=== PATIENT | male | born 1995 | race Caucasian/White ===

== ENCOUNTER 2021-02-22 23:31 | Emergency (ER) | payer SELFPAY ==
[2021-02-22 23:45] VITALS: BP 150/96; PULSE 117; RESP 16; TEMP 37.6; O2SAT 96; BMI 37.7
[2021-02-23 00:38] LABS: Add Urine Microscopic? YES; Bacteria Urine TRACE /hpf; Bilirubin Urine Neg (Negative); Blood Urine Neg (Negative); Glucose Urine UA Norm (Normal); Ketones Urine Negative (Negative); Leukocyte Esterase Urine 1+ (Negative); Nitrate Urine Negative (Negative); Protein Urine Neg (Negative); RBC Urine 0-4 /hpf (0-2); Squamous Epithelial Cell Urine 0-4 /hpf (0-5); Urine Appearance Clear (CLEAR); Urine Color Yellow (Yellow); Urobilinogen Urine 4 mg/dL (Negative); WBC Urine 0-4 /hpf (0-5); pH Urine 6.5 (5-7)
--- NOTE | 2021-02-23 00:48 | W.ED.MALEGU ---
HPI - Male Genitourinary General: Chief complaint: Urogenital-Male Stated complaint: genital bleeding Time Seen by Provider: 02/22/21 23:39 Source: patient Mode of arrival: ambulatory Limitations: no limitations History of Present Illness: HPI Narrative: 25-year-old male states he has had some pain at the tip of his penis over the last 2 to 3 days along with irritation and some bleeding at times. He denies any dysuria or discharge. He denies any worsening or improving factors. Denies any lesions. Associated symptoms: Deny dysuria, nausea or vomiting Review of Systems Const: Denies: fever(s), chills, body aches or change in appetite Eyes: Denies: blurry vision or eye discomfort ENMT: Denies: throat pain or dental pain Card: Denies: chest pain Resp: Denies: dyspnea GI: Denies: abdominal pain, nausea, vomiting or diarrhea : Reports: genital pain; Denies: dysuria Musc: Denies: neck pain or back pain Skin/Breast: Denies: rash Neuro: Denies: headache(s) Psych: Denies: depression Damián/Lymph: Denies: easy bruising All/Imm: Denies: urticaria Physical Exam Const: COMMON NORMALS: no acute distress, patient oriented x3 and healthy appearing HENMT: COMMON NORMALS: normocephalic and atraumatic HEAD & SCALP: normocephalic and atraumatic Eye: COMMON NORMALS: Equal, round and reactive pupils present and EOMs intact bilaterally PUPIL: Yes Equal, round and reactive pupils present Neck/C-Spine: COMMON NORMALS: full ROM and supple Chest: COMMONS NORMALS: normal inspection of the chest and normal palpation of entire chest wall Resp: COMMON NORMALS: normal respiratory effort, No retractions, No use of accessory muscles and clear to auscultation bilaterally AUSCULTATION: clear to auscultation bilaterally Cardio: COMMON NORMALS: regular rate, regular rhythm and No murmurs present (Cardio) RATE: regular rate RHYTHM: regular rhythm GI: COMMON NORMALS: Normal to inspection, nondistended, normoactive bowel sounds present, Soft to palpation, non-tender and no masses PALPATION: Yes Soft to palpation : OTHER: Erythema noted to the glans consistent with a balanitis Extremity: COMMON NORMALS: normal to inspection and full ROM Neuro: COMMON NORMALS: patient oriented x3, moves all extremities and no focal motor deficits Psych: COMMON NORMALS: mental status grossly normal, Normal thought process present and cooperative THOUGHT PROCESS: Normal thought process present Skin: COMMON NORMALS: no rashes or lesions noted and no wounds GENERAL SKIN EXAM: no rashes or lesions noted Course Vital Signs: Vital signs: Vital Signs Temperature 99.6 F 02/22/21 23:45 Pulse Rate 117 H 02/22/21 23:45 Respiratory Rate 16 02/22/21 23:45 Blood Pressure 150/96 02/22/21 23:45 Pulse Oximetry 96 02/22/21 23:45 MDM - Male MDM Narrative: Medical decision making narrative: Patient presents here with a balanitis. Will prescribe him clotrimazole. He is stable for discharge is to follow-up PCP and return if worsening. Lab Data: Labs: Lab Results 02/23/21 Range/Units 00:22 Urine Color Yellow (Yellow) Urine Appearance Clear (CLEAR) Urine pH 6.5 (5-7) Ur Specific Gravit y 1.020 (1.005-1.030) Urine Protein Neg (Negative) Urine Glucose (UA) Norm (Normal) Urine Ketones Negative (Negative) Urine Blood Neg (Negative) Urine Nitrate Negative (Negative) Urine Bilirubin Neg (Negative) Urine Urobilinogen 4 H (Negative) mg/dL Ur Leukocyte Greer ase 1+ H (Negative) Urine RBC 0-4 H (0-2) /hpf Urine WBC 0-4 H (0-5) /hpf Ur Squamous Epith Cells 0-4 H (0-5) /hpf Amorphous Sediment Not Reportable Urine Bacteria Trace (NONE) /hpf Discharge Plan Discharge Patient Disposition: Home Clinical Impression: Balanitis Condition: Stable Prescriptions: New clotrimazole 1 % cream 1 applic topical BID 14 Days RF: 0 Discharge Orders: Discharge ED (Routine); Ordered 02/23/21 Ordered By: Tarah Crowell Discharge Diet: Advance as tolerated Discharge Activity: Resume usual activity Patient Instructions: Tomasa (ED) Coding Level 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
== END 2021-02-23 01:01 | disposition home or self-care (01) ==
PROVIDERS: Emergency Provider Emergency Medicine
DX: N48.1 Balanitis (principal)
CPT/HCPCS: 81001; 99281

== ENCOUNTER 2021-03-03 16:07 | Emergency (ER) | payer SELFPAY ==
[2021-03-03 16:41] VITALS: BP 125/80; PULSE 121; RESP 16; TEMP 37; O2SAT 97; BMI 37.7
--- NOTE | 2021-03-03 16:54 | ED_ITS ---
HPI - Skin/Abscess/Foreign Bdy General: Chief complaint: Skin/Abscess/Foreign Body Stated complaint: infection in private area Time Seen by Provider: 03/03/21 16:49 History of Present Illness: HPI narrative: Patient is [place] is a cleared up on had the penis but now he has a couple sores underneath the head of the penis on the underside. Denies much pain does not have any discharge last sexual contact was greater than 2 months ago. And he said person he had sex with a just recently been tested and was clear of all problems MD complaint: rash and lesion Onset (ago): day(s) Associated symptoms: Deny chills, fever(s), nausea or vomiting Review of Systems Const: Denies: fever(s), chills or body aches Eyes: Denies: change in vision or blurry vision ENMT: Denies: throat pain or nasal congestion Card: Denies: chest pain or dyspnea on exertion Resp: Denies: dyspnea, productive cough or non-productive cough GI: Denies: abdominal pain, nausea or vomiting : Denies: difficulty urinating Musc: Denies: extremity pain Skin/Breast: Denies: rash Neuro: Denies: headache(s) Psych: Denies: anxiety or depression Damián/Lymph: Denies: easy bruising Physical Exam Const: COMMON NORMALS: no acute distress, average body habitus and patient oriented x3 HENMT: COMMON NORMALS: normocephalic HEAD & SCALP: normal to inspection and normocephalic FACE & SINUS: normal facial exam Eye: COMMON NORMALS: conjunctivae normal GENERAL EYE: appearance normal, both eyes and all related structures CONJUNCTIVA: Yes conjunctivae normal Neck/C-Spine: COMMON NORMALS: no JVD Chest: COMMONS NORMALS: normal inspection of the chest Resp: COMMON NORMALS: normal respiratory effort and clear to auscultation bilaterally AUSCULTATION: clear to auscultation bilaterally Cardio: COMMON NORMALS: no JVD and regular rhythm RATE: tachycardic RHY THM: regular rhythm GI: COMMON NORMALS: Normal to inspection, nondistended, normoactive bowel sounds present : OTHER: Had the penis has some whitish discoloration to it but at the base of the head of the penis on the underside has a couple red sores with slight inflammation no drainage no evidence of chancres on the shaft no other areas noted that. Normal. Extremity: COMMON NORMALS: normal to inspection and full ROM Neuro: COMMON NORMALS: patient oriented x3 Course Vital Signs: Vital signs: Vital Signs Temperature 98.6 F 03/03/21 16:41 Pulse Rate 121 H 03/03/21 16:41 Respiratory Rate 16 03/03/21 16:41 Blood Pressure 125/80 03/03/21 16:41 Pulse Oximetry 97 03/03/21 16:41 Discharge Plan Discharge Patient Disposition: Home Clinical Impression: Open wound of penis Qualifiers: Encounter type: initial encounter Qualified Code(s): S31.20XA - Unspecified open wound of penis, initial encounter Condition: Stable Prescriptions: New mupirocin 2 % ointment 1 applic topical TID Qty: 22 RF: 0 Zithromax Z-Gianni 250 mg tablet See Rx Instructions .ROUTE .COMPLEX Qty: 6 RF: 0 No Action clotrimazole 1 % cream 1 applic topical BID 14 Days RF: 0 Discharge Orders: Discharge ED (Routine); Ordered 03/03/21 Ordered By: Shilo Nair Discharge Diet: Usual diet Discharge Activity: Resume usual activity Activity Restrictions/Additional Instructions: If not better in 5 to 7 days follow-up your primary care provider yet reevaluated. Use medication as directed. 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
[2021-03-04 08:54] LABS: Glucose Point of Care 96 mg/dL (70-110)
== END 2021-03-03 17:39 | disposition home or self-care (01) ==
PROVIDERS: Emergency Provider Nurse Practitioner Family
DX: S31.20XA Unspecified open wound of penis, initial encounter (principal); X58.XXXA Exposure to other specified factors, initial encounter
CPT/HCPCS: 36416; 82962; 99282

== ENCOUNTER 2022-01-16 17:07 | Emergency (ER) | payer OTHER, SELFPAY ==
[2022-01-16 17:10] VITALS: BP 151/85; PULSE 110; RESP 16; TEMP 36.6; O2SAT 97
--- NOTE | 2022-01-16 17:17 | ED_ITS ---
HPI - Ear Problem General: Chief complaint: Ear Stated complaint: right ear pain Time Seen by Provider: 01/16/22 17:16 History of Present Illness: Patient is a 26-year-old male who comes to the ED with right ear complaint. Patient reports right ear pain that started last night. He also reports feeling like his ear feels clogged and is having trouble hearing out of it. He had cold symptoms with nasal congestion drainage and cough for the past week and his cold symptoms have just about resolved. Denies any fevers within the last 48 hours. Denies any nausea vomiting bladder or bowel symptoms. Associated symptoms: Reports ear or mastoid pain (right ear); Denies fever(s), headache(s) or neck pain Review of Systems Const: Denies: fever(s), chills or fatigue Eyes: Denies: change in vision or eye discomfort ENMT: Reports: ear or mastoid pain (right ear) and change in hearing (right ear); Denies: throat pain, odynophagia, nasal discharge or nasal congestion Card: Denies: chest pain, palpitations, edema, swelling of feet/ankles, dyspnea on exertion or orthopnea Resp: Denies: dyspnea, productive cough or non-productive cough GI: Denies: abdominal pain, nausea, vomiting, diarrhea, constipation or hematochezia : Denies: flank pain, difficulty urinating, dysuria or hematuria Musc: Denies: neck pain, back pain or extremity swelling Skin/Breast: Denies: rash or new lesions Neuro: Denies: headache(s), numbness in extremities or weakness in extremities PFS ED PFSH: Medical History No pertinent family history Surgical History No pertinent past surgical history Physical Exam Const: COMMON NORMALS: patient oriented x3 and alert GENERAL APPEARANCE: cooperative HENMT: COMMON NORMALS: normocephalic HEAD & SCALP: normocephalic EXTERNAL AUDITORY CANAL: Abnormal EAC present EAC laterality: right Details: erythema, edema and EAC tenderness TYMPANIC MEMBRANE: TM abnormal TM laterality: right Details: bulging, erythematous and fluid behind TM MOUTH: Normal oral and palatal mucosa present THROAT: posterior oropharynx normal and uvula midline Neck/C-Spine: COMMON NORMALS: supple GENERAL: Yes normal visual inspection Resp: COMMON NORMALS: normal respiratory effort, No retractions, No use of accessory muscles and clear to auscultation bilaterally AUSCULTATION: clear to auscultation bilaterally Cardio: COMMON NORMALS: regular rate, regular rhythm, S1 normal heart sound present, S2 normal heart sound present, No gallops present (Cardio), No clicks present (Cardio), No murmurs present (Cardio) and Peripheral pulses 2+ throughout RATE: regular rate RHYTHM: regular rhythm HEART SOUNDS: S1 normal heart sound present and S2 normal heart sound present PERIPHERAL PULSES: Peripheral pulses 2+ throughout GI: COMMON NORMALS: Normal to inspection, nondistended, normoactive bowel sounds present, Soft to palpation, non-tender and no masses PALPATION: Yes Soft to palpation : COMMON NORMALS: Yes no CVA tenderness BLADDER/KIDNEY EXAM: Yes no CVA tenderness Back/Pelvis: COMMON NORMALS: no CVA tenderness Extremity: COMMON NORMALS: normal to inspection Neuro: COMMON NORMALS: patient oriented x3 and moves all extremities SENSORIUM/ORIENTATION: Yes alert Skin: GENERAL SKIN EXAM: dry skin Course Vital Signs: Vital signs: Vital Signs Temperature 97.8 F 01/16/22 17:10 Pulse Rate 110 H 01/16/22 17:10 Respiratory Rate 16 01/16/22 17:10 Blood Pressure 151/85 01/16/22 17:10 Pulse Oximetry 97 01/16/22 17:10 MDM - Ear Medical Decision Making Patient is a 26-year-old male comes to the ED with right ear pain. Vitals are stable. Patient appears nontoxic and in no acute distress. Exam of patient shows otitis media and otitis externa of right ear. He was discharged home with a prescription for Ciprodex eardrops and amoxicillin. He was told to follow-up with his PCP in the next week for reevaluation. Return to ED precautions given. Patient understood and agreed with plan. Discharge Plan Discharge Patient Disposition: Home Clinical Impression: Otitis externa Qualifiers: Otitis externa type: unspecified type Chronicity: acute Laterality: right Qualified Code(s): H60.501 - Unspecified acute noninfective otitis externa, right ear Otitis media Qualifiers: Otitis media type: serous Chronicity: acute Laterality: right Recurrence: non-recurrent Qualified Code(s): H65.01 - Acute serous otitis media, right ear Condition: Stable Prescriptions: New Ciprodex 0.3-0.1 % drops,suspension 4 drp otic (ear) BID 7 Days Qty: 7.5 0RF amoxicillin 500 mg tablet 500 mg PO BID 10 Days Qty: 20 0RF No Action mupirocin 2 % ointment 1 applic topical TID Qty: 22 0RF Zithromax Z-Gianni 250 mg tablet See Rx Instructions .ROUTE .COMPLEX Qty: 6 0RF Rx Instructions: take 500 mg today (day 1), then 250 mg for 4 days (days 2-5) Discharge Orders: Discharge ED (Routine); Ordered 01/16/22 Ordered By: Oscar Carpenter Discharge Diet: Regular Discharge Activity: Resume usual activity Activity Restrictions/Additional Instructions: Follow-up with medical provider as directed within the next 5 to 7 days reevaluation. Take medications as prescribed. Return to the ER or your medical provider if condition worsens. Please read and understand discharge instructions. Thank you for choosing [facility] for your healthcare needs today. Please realize this is an emergency room and that we are providing you with a medical screening exam and this may not be complete and all inclusive of all the testing and or work up that you may need to determine your ailment or severity of your illness. It is very important that you follow up as instructed or that you return to the Emergency Department should you have concerns or if your condition changes or worsens in any way. 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
== END 2022-01-16 17:36 | disposition home or self-care (01) ==
PROVIDERS: Emergency Provider Physician Assistant
DX: H60.501 Unspecified acute noninfective otitis externa, right ear (principal)
CPT/HCPCS: 99283

== ENCOUNTER 2022-05-31 02:54 | Emergency (ER) | payer SELFPAY ==
[2022-05-31 03:02] VITALS: BP 139/84; PULSE 105; RESP 18; TEMP 36.7; O2SAT 98; BMI 37.7
[2022-05-31 03:06] VITALS: BP 148/88; PULSE 95; RESP 16; O2SAT 97
--- NOTE | 2022-05-31 03:31 | XRR_ITS ---
PROCEDURE INFORMATION: Exam: XR Thoracic Spine Exam date and time: 05/31/2022 3:43 AM Age: 27 years old Clinical indication: Pain in thoracic spine; Patient HX: Patient has linear bruise inbetween scapulae. C/O upper back pain after swimming last night. ; Additional info: Pain, bruise TECHNIQUE: Imaging protocol: Radiologic exam of the thoracic spine. Views: 3 views. COMPARISON: CT abdomen pelvis w con* [id number] 02/12/2019 12:55 PM FINDINGS: Bones/joints: There is normal vertebral body alignment. There are normal vertebral body heights. Disc spaces are symmetric and maintained. The pedicles are intact. No fracture. Soft tissues: Unremarkable. XR/XR thoracic spine 3V* [id number] IMPRESSION: No fracture.
--- NOTE | 2022-05-31 04:26 | ED_ITS ---
HPI - Back Pain/Injury General: Chief Complaint: Back Pain/Injury Stated Complaint: Bruise on Spine Time Seen by Provider: 05/31/22 03:31 History of Present Illness: 27-year-old male presents because he has a bruise on his upper back along his spine and paraspinal area. Patient's not sure how long its been there and how it happened and he wanted to have it evaluated. He has some mild tenderness on the left side of the spine but no vertebral tenderness. Patient was concerned because he had a little left leg pain and thought it might be related. Patient reports that some of his friends noticed a bruise and asked how he found out there was a bruise on his back. Review of Systems General: Reports: 10 or more systems reviewed and unremarkable except in HPI and below Musc: Reports: other (Please see HPI) Skin/Breast: Reports: other (Please see HPI) [facility] ED PFSH: Medical History No pertinent family history Surgical History No pertinent past surgical history Physical Exam Const: COMMON NORMALS: no acute distress, patient oriented x3 and alert Resp: COMMON NORMALS: normal respiratory effort, No use of accessory muscles and clear to auscultation bilaterally AUSCULTATION: clear to auscultation bilaterally Cardio: COMMON NORMALS: regular rate and regular rhythm RATE: regular rate RHYTHM: regular rhythm GI: COMMON NORMALS: Soft to palpation INSPECTION: Yes normal to inspection PALPATION: Yes Soft to palpation and No Tenderness to palpation present (GI) Back/Pelvis: THORACIC SPINE/UPPER BACK: No thoracic spinal tenderness, Yes paraspinal muscle tenderness, No paraspinal muscle spasm and Yes other soft tissue findings Other thoracic soft tissue findings laterality: left (Mild ecchymosis that is old) Left other thoracic soft tissue findings details: ecchymosis Neuro: COMMON NORMALS: patient oriented x3, CN's II-XII intact bilaterally, moves all extremities, no focal motor deficits, no sensory deficits noted, deep tendon reflexes 2+ bilaterally and gait normal SENSORIUM/ORIENTATION: Yes alert Psych: COMMON NORMALS: mental status grossly normal, cooperative and normal affect Skin: NARRATIVE SKIN EXAM: Mild linear ecchymosis in the thoracic spine/paraspinal region Course Vital Signs: Vital signs: Vital Signs Temperature 98.1 F 05/31/22 03:02 Pulse Rate 95 05/31/22 03:06 Respiratory Rate 16 05/31/22 03:06 Blood Pressure 148/88 05/31/22 03:06 Pulse Oximetry 97 05/31/22 03:06 Oxygen Delivery Me thod 05/31/22 03:06 MDM - Back Pain/Injury Medical Decision Making Patient with a linear contusion that almost looks as if he was struck by a mina or fell onto a mina or corner of a wall. Patient with paraspinal tenderness but no midline or vertebral tenderness patient with normal neurologic exam. Patient x-ray shows no acute findings. Patient was stable and discharged home Discharge Plan Discharge Patient Disposition: Home Clinical Impression: Contusion of left upper back excluding scapular region Condition: Stable Prescriptions: No Action mupirocin 2 % ointment 1 applic topical TID Qty: 22 0RF Zithromax Z-Gianni 250 mg tablet See Rx Instructions .ROUTE .COMPLEX Qty: 6 0RF Rx Instructions: take 500 mg today (day 1), then 250 mg for 4 days (days 2-5) Discharge Orders: Discharge ED (Routine); Ordered 05/31/22 Ordered By: Rubin Diaz Discharge Diet: Advance as tolerated Discharge Activity: Resume usual activity Patient Instructions: Opioid Safety, Pain Management, Contusion Activity Restrictions/Additional Instructions: Tylenol or ibuprofen as needed for discomfort 4% topical lidocaine with menthol use as directed on package as needed for discomfort Follow-up with your primary care provider if symptoms worsen or bruise starts to expand over the next couple days Coding 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
[2022-05-31 04:38] VITALS: BP 127/90; PULSE 98; RESP 14; O2SAT 98
== END 2022-05-31 04:41 | disposition home or self-care (01) ==
PROVIDERS: Emergency Provider Student in an Organized Health Care Education/Training Program
DX: S20.229A Contusion of unspecified back wall of thorax, initial encounter (principal); X58.XXXA Exposure to other specified factors, initial encounter
CPT/HCPCS: 72072; 99283

== ENCOUNTER 2023-05-02 10:47 | Emergency (ER) | payer SELFPAY ==
[2023-05-02] VITALS (17 sets, daily range): BP systolic 115–143; BP diastolic 73–90; PULSE 87–119; RESP 16–26; TEMP 36.7; O2SAT 92–97
[2023-05-02 11:55] LABS: Basophils % 0.5 %; Eosinophils # 0.1 10^3/uL (0.0-0.8); Eosinophils % 1.8 %; Hematocrit 48.9 % (37-53); Lymphocytes # 2.2 10^3/uL (0.8-4.8); Lymphocytes % 39.8 %; Mean Corpuscular HGB Conc 34.8 g/dL (30-55); Mean Corpuscular Volume 86.4 fl (82-101); Monocytes # 0.5 10^3/uL (0.2-0.9); Monocytes % 9.1 %; Neutrophils % 48.3 %; Nucleated Red Blood Cells % 0 %; Platelet Count 190 10^3/cmm (157-399); Red Blood Count 5.66 10^6/uL (3.85-5.65); Red Cell Distribution Width 12.7 % (12.1-15.1)
[2023-05-02 12:16] LABS: Alanine Aminotransferase 48 U/L (0-41); Albumin Level 4.9 g/dL (3.5-5.2); Alkaline Phosphatase 63 U/L (40-130); Anion Gap 13.8 (5-19); Aspartate Amino Transferase 35 U/L (0-40); Blood Urea Nitrogen 15 mg/dL (6-20); Calcium 9.5 mg/dL (8.5-10.5); Carbon Dioxide 29 mmol/L (22-29); Chloride 101 mmol/L (98-107); Globulin 3.1 g/dL (1.3-4.6); Glomerular Filtration Rate 115.1 mL/min (90-130); Glucose 91 mg/dL (65-115); Osmolality Calculated 290 mOsm/kg (285-295); Potassium 3.8 mmol/L (3.5-5.1); Sodium 140 mmol/L (136-145); Total Bilirubin 1.2 mg/dL (0.15-1.2)
[2023-05-02 12:25] LABS: Creatine Phosphokinase 364 U/L (39-308)
--- NOTE | 2023-05-02 13:02 | ED_ITS ---
HPI - Weakness General: Chief complaint: Weakness Stated complaint: sob, stomach pain Time Seen by Provider: 05/02/23 12:52 History of Present Illness: Presents to the ER with complaints of weakness and muscle cramps. Patient stated last night he was lying in his room with a fan on and someone sprayed some bug killer and he thinks his faint sected in his room and he breathed in. Patient states he was feeling worse last night when he woke up this morning he was feeling better but throughout the day he started feeling worse again Review of Systems General: Reports: 10 or more systems reviewed and unremarkable except in HPI and below PFSH ED PFSH: Medical History No pertinent family history Surgical History No pertinent past surgical history Physical Exam Const: COMMON NORMALS: no acute distress, average body habitus, patient oriented x3, no limitations, healthy appearing, alert and well nourished HENMT: COMMON NORMALS: normocephalic, atraumatic, hearing grossly normal bilaterally, external ears normal, Normal external nose present and moist oral mucous membranes HEAD & SCALP: normocephalic and atraumatic NOSE: Normal external nose present EXTERNAL EAR: Yes external ears normal Neck/C-Spine: COMMON NORMALS: full ROM, no lymphadenopathy, supple, no m eningeal signs, no JVD and Thyroid normal THYROID: Thyroid normal Lymph: LYMPHATIC: no lymphadenopathy noted and no lymphedema noted Chest: COMMONS NORMALS: normal inspection of the chest and normal palpation of entire chest wall Resp: COMMON NORMALS: normal respiratory effort, No retractions, No use of accessory muscles and clear to auscultation bilaterally AUSCULTATION: clear to auscultation bilaterally Cardio: COMMON NORMALS: no JVD, regular rate, regular rhythm, S1 normal heart sound present, S2 normal heart sound present, No gallops present (Cardio), No clicks present (Cardio), No murmurs present (Cardio) and No rub (Cardio) RATE: regular rate RHYTHM: regular rhythm HEART SOUNDS: S1 normal heart sound present and S2 normal heart sound present GI: COMMON NORMALS: Normal to inspection, nondistended, normoactive bowel sounds present, Soft to palpation, non-tender, No hepatosplenomegaly present and no masses PALPATION: Yes Soft to palpation and Yes No hepatosplenomegaly present : COMMON NORMALS: Yes no CVA tenderness BLADDER/KIDNEY EXAM: Yes no CVA tenderness Back/Pelvis: COMMON NORMALS: no CVA tenderness Neuro: COMMON NORMALS: patient oriented x3 SENSORIUM/ORIENTATION: Yes alert MENINGEAL SIGNS: Yes no meningeal signs Course Vital Signs: Vital signs: Vital Signs Temperature 98.1 F 05/02/23 11:01 Pulse Rate 98 05/02/23 11:01 Respiratory Rate 16 05/02/23 11:01 Blood Pressure 143/79 05/02/23 11:01 Pulse Oximetry 97 05/02/23 11:01 Oxygen Delivery Me thod Room Air 05/02/23 11:01 MDM - Weakness Medical Decision Making Patient presents ER with complaints of inhaling a bunch of bug killer last night. Patient started having muscle aches and cramps last night and was starting to feel better this morning but then started to get worse again. Lab work was obtained which was essentially benign except for elevated CPK at 364. Patient was hydrated 1 L normal saline at home. Patient to follow-up with his PCP in the next 3 to 5 days as needed. Lab Data 05/02/23 11:50 05/02/23 11:50 Laboratory Results WBC 5.60 10^3/uL (3.29-11.43) 05/02/23 11:50 RBC 5.66 10^6/uL (3.85-5.65) H 05/02/23 11:50 Hgb 17.00 g/dL (11.27-16.99) H 05/02/23 11:50 Hct 48.9 % (37-53) 05/02/23 11:50 MCV 86.4 fl (82-101) 05/02/23 11:50 MCH 30.0 pg (27-33) 05/02/23 11:50 MCHC 34.8 g/dL (30-55) 05/02/23 11:50 RDW 12.7 % (12.1-15.1) 05/02/23 11:50 Plt Count 190 10^3/cmm (157-399) 05/02/23 11:50 MPV 9.0 fL (7.4-10.4) 05/02/23 11:50 Neut % (Auto) 48.3 % 05/02/23 11:50 Lymph % (Auto) 39.8 % 05/02/23 11:50 [place] % (Auto) 9.1 % 05/02/23 11:50 Eos % (Auto) 1.8 % 05/02/23 11:50 Baso % (Auto) 0.5 % 05/02/23 11:50 Neut # (Auto) 2.70 10^3/uL (1.8-7.7) 05/02/23 11:50 Lymph # (Auto) 2.2 10^3/uL (0.8-4.8) 05/02/23 11:50 [place] # (Auto) 0.5 10^3/uL (0.2-0.9) 05/02/23 11:50 Eos # (Auto) 0.1 10^3/uL (0.0-0.8) 05/02/23 11:50 Baso # (Auto) 0.0 10^3/uL (0.0-0.1) 05/02/23 11:50 Nucleated RBC % (auto) 0 % 05/02/23 11:50 Nucleated RBCs # 0.0 /100WBC 05/02/23 11:50 Sodium 140 mmol/L (136-145) 05/02/23 11:50 Potassium 3.8 mmol/L (3.5-5.1) 05/02/23 11:50 Chloride 101 mmol/L (98-107) 05/02/23 11:50 Carbon Dioxide 29 mmol/L (22-29) 05/02/23 11:50 Anion Gap 13.8 (5-19) 05/02/23 11:50 BUN 15 mg/dL (6-20) 05/02/23 11:50 Creatinine 0.8 mg/dL (0.7-1.2) 05/02/23 11:50 GFR Calculation 115.1 mL/min (90-130) 05/02/23 11:50 Glucose 91 mg/dL (65-115) 05/02/23 11:50 Calculated Osmolality 290 mOsm/kg (285-295) 05/02/23 11:50 Calcium 9.5 mg/dL (8.5-10.5) 05/02/23 11:50 Total Bilirubin 1.2 mg/dL (0.15-1.2) 05/02/23 11:50 AST 35 U/L (0-40) 05/02/23 11:50 ALT 48 U/L (0-41) H 05/02/23 11:50 Alkaline Phosphatase 63 U/L (40-130) 05/02/23 11:50 Creatine Kinase 364 U/L (39-308) H* 05/02/23 11:50 Total Protein 8.0 g/dL (6.6-8.7) 05/02/23 11:50 Albumin 4.9 g/dL (3.5-5.2) 05/02/23 11:50 Globulin 3.1 g/dL (1.3-4.6) 05/02/23 11:50 Discharge Plan Discharge Patient Disposition: Home Clinical Impression: Inhalation injury due to chemical, Elevated creatine kinase Condition: Stable Prescriptions: No Action mupirocin 2 % ointment 1 applic topical TID Qty: 22 0RF Zithromax Z-Gianni 250 mg tablet See Rx Instructions .ROUTE .COMPLEX Qty: 6 0RF Rx Instructions: take 500 mg today (day 1), then 250 mg for 4 days (days 2-5) Discharge Orders: Discharge ED (Routine); Ordered 05/02/23 Ordered By: David House Patient Instructions: Chemical Inhalation, Rhabdomyolysis (ED) Activity Restrictions/Additional Instructions: Please drink plenty of fluids. Please get plenty of fresh air. Please follow- up with your family practice doctor in the next 7 days or sooner as needed. If your symptoms return or worsen please feel free to come back to the ER. 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
[2023-05-02] MEDS: sodium chloride 0.9% 1,000 ML 999 ML IV (13:15)
--- NOTE | 2023-05-02 13:26 | PC.NURSE ---
assumed care at 13:20
== END 2023-05-02 14:35 | disposition home or self-care (01) ==
PROVIDERS: Emergency Provider Emergency Medicine
DX: T60.91XA Toxic effect of unspecified pesticide, accidental (unintentional), initial encounter (principal); R94.4 Abnormal results of kidney function studies
CPT/HCPCS: 36415; 80053; 82550; 85025; 99284; J7030

== ENCOUNTER 2025-08-30 08:31 | Emergency (ER) | payer SELFPAY ==
[2025-08-30 08:22] VITALS: PULSE 117; RESP 16; TEMP 36.7; O2SAT 95
[2025-08-30 08:27] VITALS: BP 136/76
--- NOTE | 2025-08-30 08:30 | W.ED.NAVMDI ---
HPI - Nausea/Vomiting/Diarrhea General: Chief complaint: Nausea/Vomiting/Diarrhea Stated complaint: AMS History of Present Illness: 30-year-old male with a history of obesity who presents to the emergency room with nausea and vomiting that started overnight. For some reason he will not speak but will answer yes and no. When I ask him why I want to speak he will not answer and if I ask if it is because he feels bad he nods yes. He denies any abdominal pain. EMS reports that he took some sort of edible last night. No diarrhea. No altered mental status other than his refusal to speak. No focal motor deficits Related Data Previous Rx's ?Medication ?Instructions ?Recorded ondansetron 8 mg disintegrating 8 mg PO Q6H #14 tabs 08/30/25 tablet Allergies Allergy/AdvReac Type Severity Reaction Status Date / Time No Known Allergies Allergy Verified 05/02/23 11:05 Review of Systems Narrative: Constitutional symptoms: Negative except as documented in HPI. Skin symptoms: Negative except as documented in HPI. Eye symptoms: Negative except as documented in HPI. ENMT symptoms: Negative except as documented in HPI. Respiratory symptoms: Negative except as documented in HPI. Cardiovascular symptoms: Negative except as documented in HPI. Gastrointestinal symptoms: Negative except as documented in HPI. Genitourinary symptoms: Negative except as documented in HPI. Musculoskeletal symptoms: Negative except as documented in HPI. Neurologic symptoms: Negative except as documented in HPI. Psychiatric symptoms: Negative except as documented in HPI. Endocrine symptoms: Negative except as documented in HPI. [facility] ED PFSH: Medical History (Updated 08/30/25 @ 11:59 by Ivy Zuñiga MD) No pertinent family history Surgical History No pertinent past surgical history Physical Exam Narrative: EXAM NARRATIVE: General: Alert, no acute distress. Skin: Warm, dry. Head: Normocephalic, atraumatic. Neck: Supple, trachea midline. Eye: Extraocular movements are intact. Ears, nose, mouth and throat: Tacky oral mucosa Cardiovascular: Regular, Normal peripheral perfusion. Respiratory: Lungs are clear to auscultation, respirations are non-labored, breath sounds are equal, Symmetrical chest wall expansion. Gastrointestinal: Soft, Nontender, Non distended Musculoskeletal: Normal ROM, no deformity. Neurological: Alert and oriented, No focal neurological deficit observed. Psychiatric: Odd affect. Patient will not speak currently but will use hand signals and answer yes or no by nodding his head. Course Vital Signs: Vital signs: Vital Signs Temperature 98.0 F 08/30/25 08:22 Pulse Rate 114 H 08/30/25 11:14 Respiratory Rate 20 H 08/30/25 11:14 Blood Pressure 127/73 08/30/25 11:14 Pulse Oximetry 96 08/30/25 11:14 Oxygen Delivery Me thod Room Air 08/30/25 11:14 MDM - Nausea/Vomiting/Diarrhea Medical Decision Making Medical decision making Patient's reason for coming to the emergency room: Vomiting Social determinants: Patient is employed. I reviewed the patient's medical record. Patient's last visit to emergency room was back in April. I reviewed the patient's current home meds No chronic home medications Alternate historians: EMS, Differential diagnosis for this patient with nausea and vomiting including but not limited to and based on the above HPI, review of systems and physical exam: Urinary tract infection. Appendicitis. Cholecystitis. Colitis. small bowel obstruction. Crohn's flare. pancreatitis. gastritis. peptic ulcer. cyclic vomiting. Viral illness. Influenza. COVID. And would have concern for resultant dehydration or renal failure. Orders placed to evaluate differential diagnosis based on the above differential, HPI and physical exam Lab Review: Laboratory results were reviewed and interpreted by myself the emergency room physician. No leukocytosis. No anemia. No renal failure. Liver enzymes are normal. Lipase is normal flu COVID and RSV are negative. Urinalysis is negative for infection. Patient has an elevated lactate initially which comes down significantly after fluids. No abdominal pain. At this point no CT scan indicated. I also do not believe he is septic. Assessment of risk: Level of risk: Low risk patient Hospitalization considerations: No indication for hospitalization at this time. Reexamination: Patient is tolerating p.o. says he has been speaking more. We discussed that this may be related to a new marijuana product that he had for the first time yesterday. Assessment and plan: ?Gastroenteritis ? Dehydration ? 2 L normal saline bolus, IV Zofran in the emergency room. Ischarged home - Discussed plan with patient. Answered any questions. - Evaluation and treatment of this problem were appropriate in the emergency setting. Lab Data 08/30/25 08:29 08/30/25 08:29 Laboratory Results WBC 9.03 10^3/uL (3.29-11.43) 08/30/25 08: RBC 6.01 10^6/uL (3.85-5.65) H 08/30/25 08: Hgb 17.10 g/dL (11.27-16.99) H 08/30/25 08: Hct 50.3 % (37-53) 08/30/25 08: MCV 83.7 fl (82-101) 08/30/25 08: MCH 28.5 pg (27-33) 08/30/25 08: MCHC 34.0 g/dL (30-55) 08/30/25 08: RDW 12.7 % (12.1-15.1) 08/30/25 08: Plt Count 182 10^3/cmm (157-399) 08/30/25 08: MPV 9.3 fL (7.4-10.4) 08/30/25 08: Neut % (Auto) 75.8 % 08/30/25 08: Lymph % (Auto) 18.8 % 08/30/25 08: [place] % (Auto) 4.2 % 08/30/25 08: Eos % (Auto) 0.2 % 08/30/25 08: Baso % (Auto) 0.3 % 08/30/25 08: Neut # (Auto) 6.84 10^3/uL (1.8-7.7) 08/30/25 08: Lymph # (Auto) 1.7 10^3/uL (0.8-4.8) 08/30/25 08: [place] # (Auto) 0.4 10^3/uL (0.2-0.9) 08/30/25 08: Eos # (Auto) 0.0 10^3/uL (0.0-0.8) 08/30/25 08: Baso # (Auto) 0.0 10^3/uL (0.0-0.1) 08/30/25 08: Nucleated RBC % (auto) 0 % 08/30/25 08: Nucleated RBCs # 0.0 /100WBC 08/30/25 08:29 Sodium 138 mmol/L (136-145) 08/30/25 08:29 Potassium 3.8 mmol/L (3.5-5.1) 08/30/25 08:29 Chloride 99 mmol/L (98-107) 08/30/25 08:29 Carbon Dioxide 23 mmol/L (22-29) 08/30/25 08:29 Anion Gap 19.8 (5-19) H 08/30/25 08:29 BUN 11 mg/dL (6-20) 08/30/25 08:29 Creatinine 0.8 mg/dL (0.7-1.2) 08/30/25 08:29 GFR Calculation 112.8 mL/min (90-130) 08/30/25 08:29 Glucose 186 mg/dL (65-115) H 08/30/25 08:29 Calculated Osmolality 290 mOsm/kg (285-295) 08/30/25 08:29 Lactic Acid 7.5 mmol/L (0.5-2.2) H* 08/30/25 08:29 Lactic Acid (Sepsis) 2.5 mmol/L (0.5-2.2) H 08/30/25 11:13 Calcium 8.9 mg/dL (8.5-10.5) 08/30/25 08:29 Total Bilirubin 0.6 mg/dL (0.15-1.2) 08/30/25 08:29 AST 35 U/L (0-40) 08/30/25 08:29 ALT 60 U/L (0-41) H 08/30/25 08:29 Alkaline Phosphatase 70 U/L (40-130) 08/30/25 08:29 C-Reactive Protein 3.0 mg/L (0.0-4.9) 08/30/25 08:29 Total Protein 7.6 g/dL (6.6-8.7) 08/30/25 08:29 Albumin 4.7 g/dL (3.5-5.2) 08/30/25 08:29 Globulin 2.9 g/dL (1.3-4.6) 08/30/25 08:29 Lipase 22 U/L (13-60) 08/30/25 08:29 Urine Color Yellow (Yellow) 08/30/25 10:10 Urine Appearance Clear (CLEAR) 08/30/25 10:10 Urine pH 6.5 (5-7) 08/30/25 10:10 Ur Specific Damar 1.022 (1.005-1.030) 08/30/25 10:10 Urine Protein 1+ (Negative) A 08/30/25 10:10 Urine Glucose (UA) Negative (Normal) 08/30/25 10:10 Urine Ketones Negative (Negative) 08/30/25 10:10 Urine Blood Negative (Negative) 08/30/25 10:10 Urine Nitrate Negative (Negative) 08/30/25 10:10 Urine Bilirubin Negative (Negative) 08/30/25 10:10 Urine Urobilinogen 1.0 mg/dL (Negative) 08/30/25 10:10 Ur Leukocyte Esterase Negative (Negative) 08/30/25 10:10 Urine RBC 0-2 /hpf (0-2) 08/30/25 10:10 Urine WBC 0-5 /hpf (0-5) 08/30/25 10:10 Ur Squamous Epith Cells 0-5 /hpf (0-5) 08/30/25 10:10 Amorphous Sediment Not Reportable 08/30/25 10:10 Urine Bacteria None seen /hpf (NONE) 08/30/25 10:10 Hyaline Casts 2.46 /lpf 08/30/25 10:10 Urine Opiates Screen Negative ng/mL (Negative) 08/30/25 10:10 Ur Barbiturates Screen Negative ng/mL (Negative) 08/30/25 10:10 Ur Phencyclidine Scrn Negative ng/mL (Negative) 08/30/25 10:10 Ur Amphetamines Screen Negative ng/mL (Negative) 08/30/25 10:10 U Benzodiazepines Scrn Negative ng/mL (Negative) 08/30/25 10:10 Urine Cocaine Screen Negative ng/mL (Negative) 08/30/25 10:10 U Marijuana (THC) Screen Positive ng/mL (Negative) H 08/30/25 10:10 Ethyl Alcohol < 10 mg/dL (0-10) 08/30/25 09:35 Influenza A (PCR) Negative (Negative) 08/30/25 08:36 Influenza Type B (PCR) Negative (Negative) 08/30/25 08:36 RSV (PCR) Negative (Negative) 08/30/25 08:36 SARS-CoV-2 (PCR) Negative (Negative) 08/30/25 08:36 No radiology studies performed this visit Discharge Plan Discharge Patient Disposition: Home Clinical Impression: Acute vomiting, Dehydration Condition: Stable Prescriptions: New ondansetron 8 mg tablet,disintegrating 8 mg PO Q6H Qty: 14 0RF Rx Instructions: Take 1/2-1 tab every 6 hours as needed for nausea and vomiting Discharge Orders: Discharge ED (Routine); Ordered 08/30/25 Ordered By: Ivy Zuñiga Patient Instructions: Acute Nausea and Vomiting (ED), Opioid Safety, Pain Management, Patient Portal & Adolfo Instructions Activity Restrictions/Additional Instructions: Thank you for choosing [facility] for your healthcare needs today. You have been screened and evaluated and felt safe for discharge. Health conditions do change or evolve sometimes and as such it is important that you follow up with your Primary Doctor to be re checked, 3-5 days is a general good time frame for follow up. You are always welcome to return to the ED for re assessment if your symptoms are worsening or you have new concerns. (Please note that included in your discharge packet is information concerning opioid safety and pain management. This information is given to all patients who are discharged from the ER regardless of their discharge diagnosis or the medicines they usually take or are prescribed.) Print Language: Greenlandic Coding Level of Care Code ED Home Health Care Respiratory Therapist for Huber Conde
[2025-08-30] MEDS: ondansetron 2 mg/ML SDV 2 mL 8 MG IVP (08:32)
[2025-08-30 08:36] LABS: Hematocrit 50.3 % (37-53); Hemoglobin 17.10 g/dL (11.27-16.99); Mean Corpuscular HGB Conc 34.0 g/dL (30-55); Mean Corpuscular Hemoglobin 28.5 pg (27-33); Mean Corpuscular Volume 83.7 fl (82-101); Nucleated Red Blood Cells % 0 %; Platelet Count 182 10^3/cmm (157-399); Red Blood Count 6.01 10^6/uL (3.85-5.65); White Blood Count 9.03 10^3/uL (3.29-11.43)
--- OUTSIDE RECORDS SUMMARY | 2025-08-30 08:39 | XMS_ITS | Data Portability ---
Author Organization [facility]uc[facility] Mahoney, [facility] Address [address] [id number] Assessment No assessment recorded. Plan of Treatment Reminders Order Date Submit Date Provider Last Modified By Organization Details Last Modified Time Details Appointments None recorded. Lab None recorded. Referral None recorded. Procedures None recorded. Surgeries None recorded. Imaging None recorded. Medication Orders cyclobenzap rine 10 mg tablet 2023 024 [facility]/Ph[facility]acy #[id number], [address], [address], 4 17:56:24 Patient TargetsNo targets recorded. Patient InstructionsNo instructions recorded. Reason for Referral None Reported. Problems Name Problem SNOMED Code Status Onset Date Resolution Date Notes Provider Name and Address Organization Details Recorded Time Strain of abdominal muscle 371652462 Active 024 García Jones MD [address] [place] [address], [id number], [facility] 17:[facility] Problem Notes None recorded. Medical Equipment None Reported. Allergies No known drug allergies Medications Name Sig Start Date Stop Date Status Note LastModified by Organization Details LastModified Time cyclobenzaprine 10 mg tablet Take 1 tablet 3 times a day by oral route. 2023 active Not Available Not Available Not Avai lable Vitals Date Recorded Body weight Body mass index (BMI) Body height Oxygen saturation Heart rate Respiratory rate Body temperature Systolic And Diastolic Provider Name and Address Organization Details Last Updated DateTime 4 746918. 29 g 43.2 kg/m2 193.04 cm 98 % 123 /min 16 /min 98.5 [degF] 154/84 mm[Hg] Sandy Gutierrez [facility], [facility]. 17:35:49 Social History None recorded. Functional Status None recorded. Mental Status None recorded. Family History Nothing Reported. Medical History No medical history recorded. Past Encounters Encounter ID Performer Location Encounter Start Date Encounter Closed Date Diagnosis/Indication Diagnosis SNOMED-CT Code Diagnosis ICD10 Code Diagnosis IMO Codes Diagnosis Note [id number] García Jones MD [facility]) [address] [place] [address] 04/30/2024 17:30:31 05/04/2024 14:45:19 Strain of abdominal muscle 218626158 S39.011A Patient on history and exam, this is likely a strain of the abdominal muscle. Discussed relative rest, no heavy lifting, and apply warm moist heat to affected area. Utilize ibuprofen to help with inflammati on and cyclobenza elkin for muscle spasm as needed. Follow-up if symptoms do not improve or significan tly worsen. Health Concerns Section Related Observation LastModified by Organization Detai ls LastModified Time None Recorded Concern Status LastModified by Organization Details LastModified Time None Recorded Advance Directives Directive None Recorded Payers Insurance Date Sequence Insurance Name Policy Number Policy Serra Covered Member ID Serra Member ID Guarantor Name 04/30/2024 1 *SELF PAY* Andreas Spears Notes Date Note Type Note Provider Name and Address Organization Details Recorded Time 04/30/2024 text/html This is a 20-year-old woman that comes in today for mid to upper abdominal pain. Patient states that it hurts with certain movements. Patient notices the pain when he goes to lay down and when he stretches his arms up above his head. Denies any bowel changes. Patient denies any nausea or vomiting. Patient has not had any surgeries on his abdomen in the past. he does not recall a specific injury. However, the patient does does heavy lifting at work. García Jones MD [address] [place] [address], [phone], [facility], [facility] 04/30/2024 18:03:50
[2025-08-30 09:02] LABS: Alanine Aminotransferase 60 U/L (0-41); Albumin Level 4.7 g/dL (3.5-5.2); Alkaline Phosphatase 70 U/L (40-130); Anion Gap 19.8 (5-19); Aspartate Amino Transferase 35 U/L (0-40); Blood Urea Nitrogen 11 mg/dL (6-20); Calcium 8.9 mg/dL (8.5-10.5); Carbon Dioxide 23 mmol/L (22-29); Chloride 99 mmol/L (98-107); Globulin 2.9 g/dL (1.3-4.6); Glucose 186 mg/dL (65-115); Lipase 22 U/L (13-60); Osmolality Calculated 290 mOsm/kg (285-295); Potassium 3.8 mmol/L (3.5-5.1); Sodium 138 mmol/L (136-145); Total Protein 7.6 g/dL (6.6-8.7)
[2025-08-30 09:09] LABS: Lactic Sepsis W/Reflex 7.5 mmol/L (0.5-2.2)
[2025-08-30 09:32] LABS: Respiratory Syncytial Virus Ce NEGATIVE (Negative); SARS-CoV-2 PCR NEGATIVE (Negative)
[2025-08-30 10:11] LABS: Alcohol Level < 10 mg/dL (0-10)
[2025-08-30 10:19] LABS: Reflex Lactate Order REFLEX LACTIC ORDERD
[2025-08-30 10:19] LABS: Glucose Urine UA Negative (Normal); Nitrate Urine Negative (Negative); Specific Gravity, Urine 1.022 (1.005-1.030)
[2025-08-30 10:27] LABS: PCP Screen Urine Negative (Negative)
[2025-08-30 10:35] VITALS: BP 106/65; PULSE 113; RESP 18; O2SAT 93
[2025-08-30 11:14] VITALS: BP 127/73; PULSE 114; RESP 20; O2SAT 96
[2025-08-30 11:46] LABS: Lactic Acid level (Lactate) 2.5 mmol/L (0.5-2.2)
== END 2025-08-30 12:52 | disposition home or self-care (01) ==
PROVIDERS: Emergency Provider Emergency Medicine
DX: R11.10 Vomiting, unspecified (principal); E86.0 Dehydration; Z11.52 Encounter for screening for COVID-19
CPT/HCPCS: 36415; 80053; 80306; 80307; 81001; 83605; 83690; 85025; 86140; 87040; 87637; 96361; 96374; 99284; J2405; J7030